=== PATIENT | male | born 1945 | race African-American/Black ===

== ENCOUNTER 2016-04-01 03:56 | Emergency (ER) | payer MEDICARE, MEDICAID ==
[~2016-04-01] VITALS: Ht 175.3 cm; Wt 72.5 kg
[~2016-04-01 03:56] MED LIST: HTN MED PO
[2016-04-01] MEDS ORDERED: HYDR25TA PO (04:19)
[2016-04-01] MEDS ORDERED: ATEN25 PO (04:19)
[2016-04-01] MEDS ORDERED: NIFE30TA5 PO (04:19)
[2016-04-01] MEDS ORDERED: HYDROCODONE/ACETAMINOPHEN 5-325 MG TABLET PO ONE (06:45)
[2016-04-01] MEDS ORDERED: KETOROLAC TROMETHAMINE 30 MG/ML VIAL IM ONE (06:45)
[2016-04-01 07:01] LABS: BASOPHILS % (AUTO) 0.7 % (0.0-2.0); EOSINOPHILS % (AUTO) 2.7 % (1.0-6.0); HEMATOCRIT 49.3 % (41-53); HEMOGLOBIN 15.6 g/dL (13.5-17.5); LYMPHOCYTES # (AUTO) 1.7 K/uL (1.0-4.8); LYMPHOCYTES % (AUTO) 23.2 % (22.0-44.0); MEAN CORPUSCULAR HGB CONC 31.6 G/dL (31.0-37.0); MEAN CORPUSCULAR VOLUME 88 fL (80-100); MONOCYTES % (AUTO) 13.5 % (2.0-9.0); NEUTROPHILS # (AUTO) 4.3 K/uL (1.8-7.7); NEUTROPHILS % (AUTO) 59.9 % (40.0-70.0); PLATELET COUNT (AUTO) 149 K/uL (150-450); RBC MORPHOLOGY COMMENT NORMAL RBC MORPH; RED BLOOD CELL COUNT(AUTO) 5.57 MIL/uL (4.50-5.90); RED CELL DISTRIBUTION WIDTH 16.9 % (11.5-14.5); WHITE BLOOD COUNT (AUTO) 7.3 K/uL (4.5-11.0)
[2016-04-01 07:12] LABS: ANION GAP 7 mmol/L (8-16); CALCIUM, TOTAL 9.1 mg/dL (8.8-10.5); CARBON DIOXIDE 31 mmol/L (22-29); CHLORIDE 106 mmol/L (98-107); CREATININE 2.02 mg/dL (0.60-1.30); GLOMERULAR FILTR. RATE CALC 40 mL/min (>60); POTASSIUM 4.2 mmol/L (3.5-5.1); SODIUM SERUM 144 mmol/L (136-145); UREA NITROGEN, BLOOD 28 mg/dL (7-18)
[2016-04-01 07:38] LABS: ALANINE AMINOTRANSFERASE 21 U/L (12-78); ALBUMIN 3.1 g/dL (3.4-5.0); ASPARTATE AMINOTRANSFERASE 21 U/L (15-37); BILIRUBIN,TOTAL 0.2 mg/dL (0.1-1.0); CREATINE KINASE MB 3.5 ng/mL (0-5); CREATINE KINASE, TOTAL 129 U/L (39-308); TOTAL PROTEIN, SERUM 7.3 g/dL (6.4-8.2)
[2016-04-01 08:38] VITALS: BP 112/76
== END 2016-04-01 09:32 | disposition home or self-care (01) ==
LOC: EMS 03:57
DX: M16.0 Bilateral primary osteoarthritis of hip (principal); R26.2 Difficulty in walking, not elsewhere classified; I10 Essential (primary) hypertension; G89.29 Other chronic pain; F11.90 Opioid use, unspecified, uncomplicated
CPT/HCPCS: 36415; 80053; 82550; 82553; 85025; 96372; 99284; J1885

== ENCOUNTER 2018-11-29 02:08 | Inpatient (IN) | payer MEDICAID, MEDICARE ==
[~2018-11-29] VITALS: Ht 175.3 cm; Wt 56.1 kg
[~2018-11-29 02:08] MED LIST changes: +ATEN25TA PO; -HTN MED PO; +HYDR25TA PO; +NIFE30TA5 PO
[2018-11-29] MEDS ORDERED: SODIUM CHLORIDE 0.9% 100 ML ONE (02:15)
[2018-11-29] MEDS ORDERED: IOVERSOL 350 MG/ML 100 ML VIAL ONE (02:15)
[2018-11-29 02:22] LABS: BASOPHILS % (AUTO) 1.1 % (0.0-2.0); EOSINOPHILS % (AUTO) 1.9 % (1.0-6.0); HEMATOCRIT 43.9 % (41-53); HEMOGLOBIN 14.6 g/dL (13.5-17.5); LYMPHOCYTES # (AUTO) 1.5 K/uL (1.0-4.8); LYMPHOCYTES % (AUTO) 23.2 % (22.0-44.0); MEAN CORPUSCULAR HEMOGLOBIN 28.6 pg (26.0-34.0); MEAN CORPUSCULAR HGB CONC 33.2 G/dL (31.0-37.0); MEAN CORPUSCULAR VOLUME 86 fL (80-100); MONOCYTES # (AUTO) 0.6 K/uL (0.1-1.0); MONOCYTES % (AUTO) 9.5 % (2.0-9.0); NEUTROPHILS # (AUTO) 4.2 K/uL (1.8-7.7); NEUTROPHILS % (AUTO) 64.3 % (40.0-70.0); PLATELET COUNT (AUTO) 159 K/uL (150-450); RED CELL DISTRIBUTION WIDTH 15.4 % (11.5-14.5)
[2018-11-29 02:35] LABS: INR 1.1 (0.9-1.1); PROTHROMBIN TIME 10.7 SEC (9.4-11.6)
[2018-11-29 02:37] LABS: ALBUMIN 3.5 g/dL (3.4-5.0); BILIRUBIN,TOTAL 0.4 mg/dL (0.1-1.0); CALCIUM, TOTAL 9.4 mg/dL (8.8-10.5); CREATININE 1.6 mg/dL (0.60-1.30); TOTAL PROTEIN, SERUM 7.7 g/dL (6.4-8.2)
[2018-11-29 02:44] LABS: POTASSIUM 3.9 mmol/L (3.5-5.1)
[2018-11-29] MEDS ORDERED: SODIUM CHLORIDE 0.9% 1,000 ML IV ONE (03:00)
[2018-11-29 05:36] LABS: AMPHET/METH SCREEN,URINE NEGATIVE (NEGATIVE); BARBITURATE SCREEN, URINE NEGATIVE (NEGATIVE); BENZODIAZEPINES SCREEN,URINE NEGATIVE (NEGATIVE); CANNABINOID SCREEN,URINE POSITIVE (NEGATIVE); COCAINE SCREEN,URINE POSITIVE (NEGATIVE); METHADONE SCREEN, URINE NEGATIVE (NEGATIVE); OPIATE SCREEN,URINE POSITIVE (NEGATIVE); PHENCYCLIDINE SCREEN,URINE NEGATIVE (NEGATIVE)
[2018-11-29 08:01] VITALS: BP 125/72
[2018-11-29] MEDS ORDERED: ACETAMINOPHEN 325 MG TABLET PO PRN (10:00)
[2018-11-29] MEDS ORDERED: DOCUSATE SODIUM 100 MG CAPSULE PO PRN (10:00)
[2018-11-29 11:23] VITALS: BP 149/85
[2018-11-29] MEDS ORDERED: INFLUENZA VIRUS VACCINE QVS 2019-20 (3YR+)/PF 60 MCG/0.5 ML SYRINGE IM ONE (12:15)
[2018-11-29] MEDS: MULTIVITAMINS WITH MINERALS, THERAPEUTIC TABLET PO SCH (14:43)
[2018-11-29 15:25] VITALS: BP 155/85
[2018-11-29 19:15] VITALS: BP 153/93
[2018-11-29] MEDS: HEPARIN SODIUM,PORCINE 5,000 UNITS/ML VIAL SQ SCH (20:41)
[2018-11-29 23:20] VITALS: BP 150/89
[2018-11-30 05:00] VITALS: BP 167/100
[2018-11-30 05:15] VITALS: BP 164/106
[2018-11-30 05:20] VITALS: BP 172/118
[2018-11-30 06:08] VITALS: BP 174/99
[2018-11-30] MEDS ORDERED: HydrALAZINE HCL 20 MG/ML VIAL IVP SCH (06:15)
[2018-11-30] MEDS ORDERED: CloNIDine HCL 0.1 MG TABLET PO PRN (06:45)
[2018-11-30 07:05] VITALS: BP 154/107
[2018-11-30] MEDS: MULTIVITAMINS WITH MINERALS, THERAPEUTIC TABLET PO SCH (08:04)
[2018-11-30] MEDS: HEPARIN SODIUM,PORCINE 5,000 UNITS/ML VIAL SQ SCH (08:08)
[2018-11-30] MEDS ORDERED: FAMOTIDINE 20 MG TABLET PO SCH (09:00)
[2018-11-30 09:41] LABS: HEMOGLOBIN A1C 6.5 % (4.5-6.2); PHOSPHORUS 2.9 mg/dL (2.5-4.9)
[2018-11-30 11:27] VITALS: BP 149/96
[2018-11-30] MEDS ORDERED: MAGNESIUM OXIDE 400 MG TABLET PO ONE (12:45)
[2018-11-30 13:08] LABS: ANION GAP 15 mmol/L (8-16); CALCIUM, TOTAL 8.8 mg/dL (8.8-10.5); CARBON DIOXIDE 21 mmol/L (22-29); CHLORIDE 104 mmol/L (98-107); CREATININE 1.19 mg/dL (0.60-1.30); GLOMERULAR FILTR. RATE CALC > 60 mL/min (>60); GLUCOSE,RANDOM 183 mg/dL (70-110); POTASSIUM 4.2 mmol/L (3.5-5.1); SODIUM SERUM 140 mmol/L (136-145); UREA NITROGEN, BLOOD 21 mg/dL (7-18)
== END 2018-11-30 13:17 | disposition home or self-care (01) | DRG 73 ==
LOC: EMS 02:10 → 6N 06:02
PROVIDERS: ADMIT Internal Medicine; ATTEND Internal Medicine
DX: G56.32 Lesion of radial nerve, left upper limb (principal); E43 Unspecified severe protein-calorie malnutrition; N17.9 Acute kidney failure, unspecified; Z68.1 Body mass index [BMI] 19.9 or less, adult; I10 Essential (primary) hypertension; E11.9 Type 2 diabetes mellitus without complications; F11.90 Opioid use, unspecified, uncomplicated; J44.9 Chronic obstructive pulmonary disease, unspecified; F17.200 Nicotine dependence, unspecified, uncomplicated; E83.42 Hypomagnesemia; Z96.649 Presence of unspecified artificial hip joint; Z59.0 Homelessness; Z85.038 Personal history of other malignant neoplasm of large intestine
CPT/HCPCS: 70496; 70551; 72141; 83036; 83735; 84100; 86850; 86900; 86901; 93005; 97165; 97535; G0480; J1644; J7050

== ENCOUNTER 2023-06-07 23:26 | Emergency (ER) | payer MEDICARE ==
[~2023-06-07] VITALS: Ht 172.7 cm; Wt 63.6 kg
[~2023-06-07 23:26] MED LIST changes: -ATEN25TA PO; -HYDR25TA PO; +NIFE-141 PO; -NIFE30TA5 PO
[2023-06-07 23:51] VITALS: TEMP 98.4
[2023-06-08] MEDS: TraMADol HCL 50 MG TABLET PO ONE (03:06)
[2023-06-08] MEDS: BACITRACIN 0.9 GM PACKET OINTMENT TP ONE (03:30)
[2023-06-08 03:55] VITALS: BP 150/102; PULSE 73; RESP 16
== END 2023-06-08 04:51 | disposition home or self-care (01) ==
LOC: EMS 23:26
DX: S13.4XXA Sprain of ligaments of cervical spine, initial encounter (principal); E11.9 Type 2 diabetes mellitus without complications; I10 Essential (primary) hypertension; F17.210 Nicotine dependence, cigarettes, uncomplicated; F12.90 Cannabis use, unspecified, uncomplicated; V89.2XXA Person injured in unspecified motor-vehicle accident, traffic, initial encounter; Y93.89 Activity, other specified; Y92.89 Other specified places as the place of occurrence of the external cause; Y99.8 Other external cause status
CPT/HCPCS: 70450; 72125; 99284